=== PATIENT | female | born 1935 | race Caucasian/White ===

== ENCOUNTER 2018-12-25 21:24 | Inpatient (IN) | payer MEDICARE, BC ==
[~2018-12-25] VITALS: Ht 167.6 cm; Wt 88.6 kg
[~2018-12-25 21:24] MED LIST: APRISO0.375 GM PO; BENICAR HCT 20-1 TA1 PO; CYMBALTA30 MG PO; FERROUS SULFAT325 MG PO; LEVAQUIN750 MG PO; MOBIC7.5 MG PO; MUCINEX600 MG PO; PRILOSEC PO; VYTORIN 10-40 M1 TAB PO; ZITHROMAX250 MG PO
[2018-12-25] MEDS ORDERED: CO Q-10200 MG PO (21:35)
[2018-12-25 23:43] LABS: APPEARANCE CLEAR (CLEAR); BILIRUBIN NEGATIVE (NEGATIVE); COLOR YELLOW (YELLOW); GLUCOSE NEGATIVE (NEGATIVE); KETONE NEGATIVE (NEGATIVE); NITRITE NEGATIVE (NEGATIVE); PROTEIN 1+ mg/dL (NEGATIVE); UROBILINOGEN NORMAL (NORMAL)
[2018-12-25 23:44] LABS: BACTERIA FEW /hpf (NONE SEEN); EPITHELIAL CELLS 0-5 /hpf (0-5); RED CELLS - URINE 0-5 /hpf (0-5); WHITE CELLS - URINE 0-5 /hpf (0-5)
[2018-12-26 00:23] LABS: ALBUMIN 2.8 g/dL (3.4-5.0); ALKALINE PHOSPHATASE 65 U/L (46-116); ALT (SGPT) 27 U/L (10-68); BILIRUBIN - TOTAL 0.21 mg/dL (0.2-1.3); CALC OSMOLALITY 282 mosm/kg (275-300); CALCIUM 8.5 mg/dL (8.5-10.1); CHLORIDE - SERUM 101 mmol/L (98-107); CREATININE - SERUM 1.4 mg/dL (0.6-1.3); POTASSIUM - SERUM 3.8 mmol/L (3.5-5.1); PROTEIN - SERUM 6.7 g/dL (6.4-8.2); SODIUM 138 mmol/L (136-145); UREA NITROGEN 27 mg/dL (7-18); eGFR NON AFRICAN AMERICAN 38 mL/min (90-120)
[2018-12-26 00:25] LABS: GLUCOSE 137 mg/dL (74-106)
[2018-12-26 00:34] LABS: HEMOGLOBIN 10.3 g/dL (12-16); LYMPHOCYTES 10.9 % (15-50); MCH 30.7 pg (26.0-34.0); MCHC 33.2 g/dL (31.0-37.0); MCV 92.5 fL (80.0-100.0); MEAN PLATELET VOLUME 8.5 fL (7.4-10.4); NEUTROPHILS 82.7 % (40-80); PLATELET COUNT 292 10x3/uL (130-400); RBC 3.35 10x6/uL (4.00-5.40); WBC 6.5 10x3/uL (4.8-10.8)
[2018-12-26 00:37] LABS: APTT 25.7 SECONDS (22.8-39.4)
[2018-12-26 00:40] LABS: INR 1.01 (0.85-1.17); PROTIME 12.8 SECONDS (11.6-15.0)
[2018-12-26 00:42] LABS: CKMB 0.5 U/L (0.0-3.6); CREATINE KINASE 52 UL (21-215)
[2018-12-26 00:47] LABS: TROPONIN-I < 0.017 ng/mL (0.000-0.060)
--- NOTE | 2018-12-26 02:30 | NUR ---
CALLED TO GIVEN REPROT BUT GOT TOLD THE NURSE TAKING THAT PT IS ON LUNCH AND WOULD HAVE TO CALL BACK.
--- NOTE | 2018-12-26 02:35 | NUR ---
rocephin infusion complete
--- NOTE | 2018-12-26 03:08 | NUR ---
REPORT RECIEVED FROM CÉSAR IN ER.
[2018-12-26] MEDS ORDERED: ZOCOR40 MG PO (03:12)
[2018-12-26] MEDS ORDERED: PROTONIX40 MG PO (03:13)
[2018-12-26] MEDS ORDERED: BENICAR HCT 201 EAC1 PO (03:14)
[2018-12-26] MEDS ORDERED: ZETIA10 MG PO (03:14)
[2018-12-26] MEDS ORDERED: CATAPRES0.1 MG PO (03:16)
[2018-12-26] MEDS ORDERED: ENTOCORT EC3 MG PO (03:16)
[2018-12-26] MEDS ORDERED: BAYER CHEWABLE81 MG PO (03:55)
[2018-12-26] MEDS ORDERED: METOPROLOL TART25 MG PO (03:55)
[2018-12-26 04:00] VITALS: BP 157/64
--- NOTE | 2018-12-26 07:10 | NUR ---
REPORT RECIEVED FROM FAMILY DENTIST. PATIENT LAYING IN BED ON BACK WITH EYES CLOSED AND BREATHING EVENLY. DTR IN BEDSIDE CHAIR. WILL CONTINUE WITH PLAN OF CARE. SR UP X 2 BED IN LOW POSITON AND CALL LIGHT IN REACH.
--- NOTE | 2018-12-26 07:10 | NUR ---
REPORT RECIEVED FROM UPHOLSTERER INSIDE. PATIENT SITTING UP IN BED SIDE CHAIR. PATIENT ALERT AND ORIENTED X 4. PATIENT DENIES ANY NEEDS OR PAIN. CALL LIGHT IN PATIENTS LAP AND INSTRUCTED PATIENT TO USE CALL LIGHT IF NEEDING TO GET UP. PTIENT VERBALIZED UNDERSTANDING.
[2018-12-26 07:58] VITALS: BP 121/52
--- NOTE | 2018-12-26 10:32 | NUR ---
PATIENT LAYING IN BED. REPOSITIONED FOR COMFORT.PATIENT DENIES ANY NEEDS OR PAIN. DTR AT BEDSIDE. WILL CONTINUE TO MONITOR.
[2018-12-26 11:33] VITALS: BP 119/50
--- NOTE | 2018-12-26 13:13 | NUR ---
PT IS ACTUALLY A PT. STATES HE CAN TAKE OVER IF HE IS WANTING. PAGED AND HE WANTS TO BE THE ADMITTING AND WILL DO THE H&P AND ASSUME CARE FOR PT. CALLED ADMISSIONS TO CHANGE ATTENDING AND DISCUSSED WITH PRIMARY NURSE. NO FURTHER NEEDS.
[2018-12-26 13:29] VITALS: Ht 167.6 cm; Wt 88.6 kg
[2018-12-26 15:14] VITALS: BP 108/51
--- NOTE | 2018-12-26 16:52 | MORECARE ---
CASE MANAGEMENT DISCHARGE SUMMARY PATIENT: ABA HUNT UNIT: [id number] ADM DATE: 12/26/18 AGE: 83 : 35 SEX: F ROOM/BED: D.4162 AUTHOR: TETE CLEMENT PHYSICIAN: REFERRING PHYSICIAN: MARLIN MONTES MD DATE OF SERVICE: 12/26/18 Discharge Plan Patient Name: ABA HUNT Facility: [facility]:[place] : 1935 Planned Disposition: Anticipated Discharge Date: Discharge Date: Expected LOS: Initial Reviewer: [id number] Initial Review Date: 12/26/2018 Generated: 12/26/18 5:52 pm Coverage Notice Reviewer: [id number] - Eleanor Owens Notice Issued Date-Time: 12/26/2018 16:35 Notice Type: Medicare Outpatient Observation Notice Notice Delivered To: Patient Relationship to Patient: Self Music Publisher Name: Delivery Method: HAND - Hand Delivered Sarah Days: Prior Verbal Notification: Recipient Understood Notice: Yes Recipient Signature: Yes Med Rec Note Co-signed by Attending: Coverage Notice Comment: TYRON DISCUSSED WITH PATIENT AND HER DAUGHTER, NISHANT BLACKMAN, AFTER VERBAL CONSENT RECEIVED. Patient Name: ABA HUNT Page 13877 at 1652 All edits/amendments must be made on the electronic document DICTATION DATE: 12/26/181650 PHYSICAL DIRECTOR: ESTELA 12/26/181650 RPT#: [id number] DC DATE: STATUS: ADM IN [facility] [address] [place] [address] END OF REPORT
[2018-12-26 20:00] VITALS: BP 122/58
--- NOTE | 2018-12-26 23:15 | NUR ---
Received patient resting in bed, CPAP on, eyes closed, respirations unlabored, deemed to be sleeping. PIV in right AC infusing D5 1/2NS @75ml/hr. Daughter at bedside.
[2018-12-27] VITALS: BP 125/56
[2018-12-27 04:00] VITALS: BP 127/68
[2018-12-27 07:05] LABS: BASOPHILS 0.2 % (0-2); HEMATOCRIT 28.4 % (36.0-48.0); IMMATURE GRANULOCYTES 0.4 % (0-5); LYMPHOCYTES 18.8 % (15-50); MCH 29.8 pg (26.0-34.0); MCHC 31.7 g/dL (31.0-37.0); MEAN PLATELET VOLUME 9.2 fL (7.4-10.4); MONOCYTES 9.9 % (2-11); NEUTROPHILS 69.7 % (40-80); PLATELET COUNT 261 10x3/uL (130-400); RBC 3.02 10x6/uL (4.00-5.40)
[2018-12-27 07:21] LABS: ANION GAP 14.1 mmol/L (8-16); CALCIUM 8.4 mg/dL (8.5-10.1); CARBON DIOXIDE 25.3 mmol/L (21.0-32.0); CREATININE - SERUM 1.1 mg/dL (0.6-1.3); POTASSIUM - SERUM 3.4 mmol/L (3.5-5.1)
--- NOTE | 2018-12-27 07:23 | HP ---
PATIENT: ABA HUNT MEDICAL RECORD: [id number] ACCOUNT: [id number] LOCATION:[address] : [birth year] ADMISSION DATE: 12/26/18 PCP: DEVEN WING MD HISTORY AND PHYSICAL EXAMINATION REASON FOR ADMISSION: Cough, congestion, and fevers. HISTORY OF PRESENT ILLNESS: The patient is an 83-year-old female who had upper respiratory symptoms with cough and congestion for 2 weeks. Yesterday, she had onset of increasing cough and fever to 101 degrees Fahrenheit. She felt more short of breath and her daughter brought her to the Emergency Room at 9:00 p.m. She denied any chest pain or hemoptysis. She has had some off-colored sputum. ED evaluation showed normal white count with left shift. Dr. Jimenez in the ED interpreted her chest x-ray as showing left lower lobe infiltrate and he admitted her to the hospital to unassigned call. In the afternoon, they realized that she had seen me in the past and I was asked to see her for admission. She has had no nausea, vomiting, or diarrhea. PAST MEDICAL HISTORY: She was hospitalized in June of 2016 for left lower lobe pneumonia, history of essential hypertension, depression, hyperlipidemia, colitis, and osteoarthritis. PAST SURGICAL HISTORY: Cholecystectomy, laparoscopically. Appendectomy. She had a benign breast lump removed on the left remotely, tonsillectomy, hysterectomy, bilateral oophorectomy, and right total knee replacement in 2014. ALLERGIES: None mentioned. FAMILY HISTORY: Father at 60 due to CAD and acute [place]. Mother at 79 due to history of pancreatic cancer. One sister of uterine cancer. HOME MEDICATIONS: Ferrous sulfate 325 mg daily, Benicar 20/12.5 one q.a.m., Vytorin 10/40 one p.o. at bedtime, clonidine 0.1 mg p.o. at bedtime, metoprolol 25 mg at bedtime, Cymbalta 30 mg p.o. daily, aspirin 81 mg a day, Protonix 40 mg p.o. q.a.m., Entocort EC 3 mg capsule p.o. two tabs daily, and Coenzyme Q10 200 mg b.i.d. REVIEW OF SYSTEMS: CONSTITUTIONAL: She felt weak for the last 2 weeks, more pronounced yesterday with fever. Poor appetite. HEENT: No recent visual change, sinus congestion, or sore throat. RESPIRATORY: Increasing cough for 2 weeks, worse last evening, with productive cough. No chest pain. She had mild dyspnea. Remote history of pneumonia as mentioned. No hemoptysis. CARDIAC: No palpitation, PND, orthopnea, or claudication. GASTROINTESTINAL: No nausea, vomiting, change in stools, blood per rectum. GENITOURINARY: No dysuria. She has mild incontinence chronically. ENDOCRINE: Denies polyuria, polydipsia, heat or cold intolerance. NEUROLOGIC: No history of stroke, TIA, or vascular headaches. INTEGUMENT: No rash or itching. PSYCHIATRIC: Denies depressed mood currently. MUSCULOSKELETAL: Chronic arthralgias in both knees, left greater than right. PHYSICAL EXAMINATION: VITAL SIGNS: Temperature is 100.1, pulse 102, respirations 24, blood pressure HISTORY AND PHYSICAL [id number] HUNT,ABA F 121/52, and sat 92% on room air. HEENT: Normocephalic. Eyes are clear. NECK: No bruits or masses. CHEST: She has fine crackles in the left base and faint wheezes in the upper lobes bilaterally. She is not retracting. HEART: Regular rate and rhythm. ABDOMEN: Soft, obese, and nontender. No organomegaly. EXTREMITIES: She has 1+ bipedal edema. She has a scar over her right knee from previous ORIF. SKIN: No rash or icterus. NEUROLOGIC: She is oriented to person, place, and time. Cranial nerves are intact. Gait was not tested. LABORATORY DATA: White count was 6500 with left shift of 82.7 neutrophils; 10.9% lymphocytes; and H&H of 10.3 and 31.0, reflecting her chronic anemia. BUN and creatinine are 27 and 1.4. Liver function is normal. Cardiac enzymes are negative. INR is 1.0. UA; 1+ protein, trace blood, 1+ leukocyte esterase, 0-5 white and red cells, and few bacteria. Influenza A and B rapid were negative. DIAGNOSTIC DATA: Chest x-ray was interpreted as normal by radiology. ASSESSMENT: Febrile illness with bronchitis versus early community-acquired pneumonia, history of hyperlipidemia, hypertension, osteoarthritis, remote UTI, and remote pneumonia. PLAN: The patient will be admitted for IV antibiotics, have already been started by ED. Cultures have been obtained. Pulmonary toilet and mucolytics. Further workup pending clinical course. Course was discussed with the patient and her daughter. TRANSINT:[id number] Voice Confirmation ID: [id number] DOCUMENT ID: [id number] MARLIN MONTES MD at 0723 CC: [id number] DICTATION DATE: 12/26/181807 PROTECTION MANAGER: 12/26/181911 ADM IN [facility] [address] [place] [address]
[2018-12-27 09:13] VITALS: BP 138/53
--- NOTE | 2018-12-27 11:00 | NUR ---
RESTING QUIETLY NAD NOTED
[2018-12-27 12:30] VITALS: BP 94/60
[2018-12-27 17:39] VITALS: BP 107/48
--- NOTE | 2018-12-27 19:30 | NUR ---
PT SITTING UP IN BED ALERT AND ORIENTED WITH FAMILY AT BEDSIDE. NO S/S OF DISTRESS. PT DENIES ANY PAIN OR NEEDS AT THIS TIME. BED LOW CALL LIGHT WITHIN REACH. WILL CONTINUE TO MONITOR.
[2018-12-27 20:00] VITALS: BP 102/41
[2018-12-28 00:30] VITALS: BP 106/47
[2018-12-28 04:00] VITALS: BP 109/54
--- NOTE | 2018-12-28 04:00 | NUR ---
PT RESTING COMFORTABLY. RR-EVEN AND UNLABORED. FAMILY AT BEDSIDE. BED LOW CALL LIGHT WITHIN REACH. WILL CONTINUE TO MONITOR.
--- NOTE | 2018-12-28 04:17 | NUR ---
RESTING IN BED WITH EYES CLOSED. NO S/S OF DISTRESS OBSERVED. CALL LIGHT IN REACH.
[2018-12-28 07:44] VITALS: BP 117/56
--- NOTE | 2018-12-28 09:00 | NUR ---
AM MEDS GIVEN AT THIS TIME. PT IN BED, FINISHING EATING BREAKFAST. PT DENIES ANY NEEDS AT THIS TIME. CALL LIGHT IN REACH, DAUGHTER AT BEDSIDE,NAD NOTED, WILL CONITNUE TO MONITOR.
[2018-12-28] MEDS ORDERED: ROBITUSSIN DM 110 ML PO (10:58)
[2018-12-28] MEDS ORDERED: ZPAK PO (10:59)
[2018-12-28] MEDS ORDERED: BREO ELLIPTA 11 EACH INH (11:08)
[2018-12-28 11:38] VITALS: BP 128/62
--- NOTE | 2018-12-28 12:48 | NUR ---
PROVIDED VERBAL AND WRITTEN DISCHARGE TEACHING TO PT AND DAUGHTER, BOTH VERBALIZED UNDERSTANDING REGARDING TEACHING. D/C RT AC IV WITH CATHETER TIP INTACT. PT LEFT UNIT VIA WHEELCHAIR, WITH ALL BELONGINGS, ACCOMPANIED BY DAUGHTER, NAD NOTED.
--- NOTE | 2018-12-30 09:19 | MORECARE ---
CASE MANAGEMENT DISCHARGE SUMMARY PATIENT: ABA HUNT UNIT: [id number] ADM DATE: 12/27/18 AGE: 83 : 35 SEX: F ROOM/BED: D.6475 AUTHOR: TETE CLEMENT PHYSICIAN: REFERRING PHYSICIAN: MARLIN MONTES MD DATE OF SERVICE: 12/30/18 Discharge Plan Patient Name: ABA HUNT Facility: [facility]:[place] : 1935 Planned Disposition: Home Anticipated Discharge Date: 12/28/18 Discharge Date: 12/28/2018 Expected LOS: 1 Initial Reviewer: [id number] Initial Review Date: 12/26/2018 Generated: 12/30/18 10:19 am Coverage Notice Reviewer: [id number] - Eleanor Owens Notice Issued Date-Time: 12/26/2018 16:35 Notice Type: Medicare Outpatient Observation Notice Notice Delivered To: Patient Relationship to Patient: Self Custom Shoemaker Name: Delivery Method: HAND - Hand Delivered Sarah Days: Prior Verbal Notification: Recipient Understood Notice: Yes Recipient Signature: Yes Med Rec Note Co-signed by Attending: Coverage Notice Comment: TYRON DISCUSSED WITH PATIENT AND HER DAUGHTER, NISHANT BLACKMAN, AFTER VERBAL CONSENT RECEIVED. Last DP export: 12/26/18 3:52 p Patient Name: ABA HUNT Page [id number] at 0919 All edits/amendments must be made on the electronic document DICTATION DATE: 12/30/18917 MICA PARTS SPRAYER: ESTELA 12/30/18917 RPT#: [id number] DC DATE:12/28/18 STATUS: DIS IN [facility] [address] [place] [address] END OF REPORT
[2019-01-01 17:10] LABS: AEROBE ID Final report (())
== END 2018-12-28 12:54 | disposition home or self-care (01) | DRG 192 ==
LOC: D.ER 21:24 → OBSVTIME 12-26 01:08 → D.M2 12-26 01:08
PROVIDERS: Family Medicine; ADMIT Family Medicine
DX: J44.0 Chronic obstructive pulmonary disease with (acute) lower respiratory infection (principal); E78.5 Hyperlipidemia, unspecified; I10 Essential (primary) hypertension; M19.90 Unspecified osteoarthritis, unspecified site; D64.9 Anemia, unspecified; K52.831 Collagenous colitis; J44.1 Chronic obstructive pulmonary disease with (acute) exacerbation

== ENCOUNTER → 2019-08-26 12:36 | Outpatient (CLI) | payer MEDICARE, BC ==
[2018-12-26 13:29] VITALS: BMI 31.5
[~2019-08-26 12:36] MED LIST changes: +BAYER CHEWABLE81 MG PO; +BENICAR HCT 201 EAC1 PO; +BREO ELLIPTA 11 EACH INH; +CATAPRES0.1 MG PO; +CO Q-10200 MG PO; +ENTOCORT EC3 MG PO; +METOPROLOL TART25 MG PO; +PROTONIX40 MG PO; +ROBITUSSIN DM 110 ML PO; +ZETIA10 MG PO; +ZOCOR40 MG PO; +ZPAK PO
== END | disposition home or self-care (01) ==
LOC: D.LAB 12:36
DX: D64.89 Other specified anemias (principal)